=== PATIENT | male | born 1990 | race Native Hawaiian/Other Pacific Islander ===

== ENCOUNTER → 2025-01-14 | Outpatient (CLI) | payer BC ==
--- NOTE | 2025-01-14 18:10 | MR ---
EXAMINATION TYPE: MR angio head wo con DATE OF EXAM: 01/14/2025 5:56 PM COMPARISON: None. CLINICAL INDICATION: Male, 34 years old with history of G43.909 MIGRAINE, UNSP, NOT INTRACTABLE, WITH OUT S, constant headaches, more so on right side behind eye TECHNIQUE: Three-dimensional [id number] intracranial MRA was performed with multiple intensity pr ojection images submitted and source data reviewed at the workstation. FINDINGS: The vertebrobasilar system as well as intracranial portions of the internal carotid arteries and thei r major tributaries are patent. I do not see evidence for sizable aneurysm or vascular malformation. IMPRESSION: Normal study. [facility], , 01/14/2025 6:08 PM
== END | disposition home or self-care (01) ==
LOC: RADMRIMAIN 17:31
PROVIDERS: ATTEND Family Medicine
DX: G43.909 Migraine, unspecified, not intractable, without status migrainosus (principal)
CPT/HCPCS: 70544